=== PATIENT | male | born 1980 | race Caucasian/White ===

== ENCOUNTER 2021-08-25 23:54 | Emergency (ER) | payer BC ==
[2021-08-26] MEDS ORDERED: Lidocaine 2% Jelly 10 ML Urojet ONE (00:47)
[2021-08-26] MEDS ORDERED: Lidocaine 2% Jelly 10 ML Urojet MUCMEM ONE (00:50)
--- NOTE | 2021-08-26 01:39 | EDM.PDOC ---
ED HPI GENERAL MEDICAL PROBLEM - General Chief Complaint: ENT Problem Stated Complaint: SOMETHING CRAWLING IN EAR Time Seen by Provider: 08/26/21 00:21 Source of Information: Reports: Patient History Limitations: Reports: No Limitations - History of Present Illness INITIAL COMMENTS - FREE TEXT/NARRATIVE: The patient presents with a possible but in his ear. He has a problems with box elder bugs at home and he laid down to go to bed and he thinks one crawled in his left ear. Onset: Sudden Duration: Minutes: Location: Reports: Other (left ear) Quality: Reports: Sharp Severity: Mild Improves with: Reports: None Worsens with: Reports: None Associated Symptoms: Reports: No Other Symptoms Left Ear Pain Score (Numeric/FACES): 2 - Related Data Allergies Allergy/AdvReac Type Severity Reaction Status Date / Time No Known Allergies Allergy Verified 08/26/21 00:17 Home Meds: Home Meds . [No Known Home Meds] 08/26/21 [History] Past Medical History - Infectious Disease History Infectious Disease History: Reports: Novel Coronavirus Social & Family History - Tobacco Use Tobacco Use Status *Q: Never Tobacco User - Caffeine Use Caffeine Use: Reports: Coffee - Recreational Drug Use Recreational Drug Use: No ED ROS ENT - Review of Systems Review Of Systems: See Below Constitutional: Reports: No Symptoms HEENT: Reports: Other (FB in left ear) Respiratory: Reports: No Symptoms Cardiovascular: Reports: No Symptoms Endocrine: Reports: No Symptoms GI/Abdominal: Reports: No Symptoms : Reports: No Symptoms Musculoskeletal: Reports: No Symptoms ED EXAM, ENT - Physical Exam Exam: See Below Exam Limited By: No Limitations General Appearance: Alert, No Apparent Distress Ears: Normal External Exam, Other (A bug in his left canal) Course - Vital Signs Last Recorded V/S: Last Vital Signs Temp 97.2 F 08/26/21 00:14 Pulse 81 08/26/21 00:14 Resp 20 08/26/21 00:14 BP 124/89 08/26/21 00:14 Pulse Ox 96 08/26/21 00:14 - Orders/Labs/Meds Meds: Medications Discontinued Medications Generic Name Dose Route Start Last Admin Trade Name Freq PRN Reason Stop Dose Admin Lidocaine HCl Confirm 08/26/21 00:47 08/26/21 00:52 Lidocaine 2% Jelly 10 Ml Urojet Administered 08/26/21 00:48 Not Given Dose 10 ml .ROUTE .STK-MED ONE Lidocaine HCl 10 ml 08/26/21 00:50 08/26/21 00:52 Lidocaine 2% Jelly 10 Ml Urojet MUCMEM 08/26/21 00:51 10 ml ONETIME ONE Administration - Re-Assessments/Exams Free Text/Narrative Re-Assessment/Exam: 08/26/21 01:37 I used a urojet and put some lidocaine in his left ear canal. The but stopped moving and I was able to remove a box elder but without any problems. His TM had some mild erythema. Departure - Departure Time of Disposition: 01:40 Disposition: Home, Self-Care 01 Condition: Good Clinical Impression: Ear foreign body Qualifiers: Encounter type: initial encounter Laterality: left Qualified Code(s): T16.2XXA - Foreign body in left ear, initial encounter - Discharge Information *PRESCRIPTION DRUG MONITORING PROGRAM REVIEWED*: Not Applicable *COPY OF PRESCRIPTION DRUG MONITORING REPORT IN PATIENT ROSELYN: Not Applicable Referrals: PCP,None [Primary Care Provider] - Additional Instructions: Take tylenol or motrin if you have any pain. Please return if you are worse. Sepsis Event Note (ED) - Evaluation Sepsis Screening Result: No Definite Risk - Focused Exam Vital Signs: Vital Signs Temp Pulse Resp BP Pulse Ox 08/26/21 00:14 97.2 F 81 20 124/89 96
== END 2021-08-26 01:43 | disposition home or self-care (01) ==
LOC: JD.ED 23:54
DX: T16.2XXA Foreign body in left ear, initial encounter (principal); Z86.16 Personal history of COVID-19
CPT/HCPCS: 69200; 99282; 99282-25

== ENCOUNTER 2023-02-04 01:12 | Emergency (ER) | payer BC | END 2023-02-04 03:12 | disposition home or self-care (01) | LOC: JD.ED 01:12 | DX: R07.89 Other chest pain (principal); N28.9 Disorder of kidney and ureter, unspecified; Z86.16 Personal history of COVID-19 | CPT/HCPCS: 36415; 71046; 71046-26; 80053; 84484; 85025; 85379; 93005; 93010; 99284; 99285 ==